=== PATIENT | male | born 1990 | race Caucasian/White ===

== ENCOUNTER 2017-04-05 16:46 | Emergency (ER) | payer MEDICAID ==
[~2017-04-05] VITALS: Ht 182.9 cm; Wt 69.2 kg
[~2017-04-05 16:46] MED LIST: LEVE250T28; [UNRECOGNIZED DRUG - OTHER]
[2017-04-05 16:47] VITALS: BP 118/71
== END 2017-04-05 18:15 | disposition home or self-care (01) ==
LOC: ED 17:47
DX: M77.8 Other enthesopathies, not elsewhere classified (principal); M25.532 Pain in left wrist

== ENCOUNTER 2017-12-28 07:42 | Emergency (ER) | payer MEDICAID ==
[~2017-12-28] VITALS: Ht 182.9 cm; Wt 63.5 kg
[2017-12-28] MEDS ORDERED: ONDANSETRON ODT 4 MG PO ONE (08:30)
[2017-12-28 08:51] LABS: RAPID INFLUENZA A Negative (Negative); RAPID INFLUENZA B Negative (Negative)
[2017-12-28] MEDS ORDERED: ONDANSETRON ODT 4 MG ONE (08:53)
[2017-12-28 10:18] VITALS: BP 117/65
== END 2017-12-28 10:22 | disposition home or self-care (01) ==
LOC: ED 08:46
DX: R11.2 Nausea with vomiting, unspecified (principal); F41.9 Anxiety disorder, unspecified; F32.9 Major depressive disorder, single episode, unspecified
CPT/HCPCS: 87400; 99284; Q0162